=== PATIENT | male | born 1935 | race Caucasian/White ===

== ENCOUNTER 2017-01-14 08:04 | Emergency (ER) | payer OTHER ==
[~2017-01-14] VITALS: Ht 170.2 cm; Wt 83.0 kg
[2017-01-14 08:14] VITALS: TEMP 36.2; O2SAT 95; Ht 170.2 cm; Wt 83.0 kg
[2017-01-14] MEDS ORDERED: METOPROLOL TARTRATE 1 MG/ML VIAL IV STA (08:28)
--- NOTE | 2017-01-14 08:40 | EMERGENCY ROOM VISIT NOTE ---
History Report prepared by Joseph: Marce Quick Under the Supervision of: Dr. Carlos Kwong M.D. First contact with patient: 08:21 Chief Complaint: CARDIAC ASSESSMENT Stated Complaint: IRREGULAR AND FAST HEART RATE Nursing Triage Summary: patient states "my heart started beating irregular about 30 mins ago." patient denies any chest pain or shortness of breath History of Present Illness The patient is a 81 year old male who presents to the Emergency Room for a cardiac assessment. He started feeling his heart beat irregularly about 30 minutes [employer]. He has experienced this feeling in the past and states that it typically lasts for 3-5 minutes and resolves on its own. Today his symptoms have been worse and are lasting longer. Son is a physician and states that the patient has never been formally diagnosed with atrial fibrillation. The patient is feeling lightheaded. The patient denies chest pain, shortness of breath, abdominal pain, leg swelling, and dizziness. He does not currently take any blood thinners. He drinks alcohol occasionally but denies drinking more alcohol than usual last night. Source of History: patient, family Onset: 30 minutes [employer]DBO[employer]TER Position: chest Quality: other (irregular) Timing: constant Associated Symptoms: No chest pain, No SOB, No abdominal pain Review of Systems All systems have been listed, reviewed, and are negative other than those previously mentioned. Please see Additional Medical History Sheet. Past Medical & Surgical Medical Problems: (1) Hypertension (2) TIA (transient ischemic attack) Family History Non-pertinent due to advanced age. Social History Alcohol Use: occasionally Occupation Status: retired Current/Historical Medications Scheduled Amlodipine (Norvasc), 5 MG PO DAILY Clopidogrel (Plavix), 75 MG PO DAILY Folic Acid (Folvite), 1 MG PO DAILY Hctz/Losartan (Hyzaar 25MG/100MG), 1 TAB PO DAILY Metoprolol Tartrate (Lopressor) (Lopressor), 25 MG PO BID Rivaroxaban (Xarelto), 1 TAB PO HS Simvastatin (Zocor), 40 MG PO QAM Allergies Coded Allergies: Penicillins (Unverified Allergy, Intermediate, , 01/14/17) Physical Exam Vital Signs Date Time Temp Pulse Resp B/P (MAP) Pulse Ox O2 Delivery O2 Flow Rate FiO2 01/14/17 10:35 77 18 132/86 96 01/14/17 10:11 113 129/74 01/14/17 09:42 74 16 127/96 96 Room Air 01/14/17 09:20 90 18 130/84 96 Room Air 01/14/17 09:11 74 18 131/90 95 Room Air 01/14/17 08:55 103 18 139/85 97 Room Air 01/14/17 08:51 125/84 01/14/17 08:49 91 14 01/14/17 08:46 123/87 01/14/17 08:44 113 22 01/14/17 08:39 96 18 01/14/17 08:34 97 18 01/14/17 08:29 106 20 01/14/17 08:24 104 21 01/14/17 08:19 108 22 01/14/17 08:16 108 01/14/17 08:14 95 Room Air 01/14/17 08:14 36.2 124 16 150/100 95 Room Air 01/14/17 08:14 95 Room Air Physical Exam GENERAL: Patient awake, alert, oriented x 3. Patient follows commands. Patient does not appear toxic. Patient is adequately hydrated and well- nourished. SKIN: No erythema, pallor, cyanosis or rash HEENT: Normal head, pupils equal, reactive to light and accommodation. Oral cavity and posterior pharynx appear normal. Neck: Without adenopathy, no neck vein distention. LUNGS: Clear to auscultation. No wheezes, no rales, no rhonchi. HEART: No murmurs. No gallops. No rubs Irregular rapid without murmur. ABDOMEN: No masses, no rebound, no hepatomegaly or splenomegaly. EXTREMITIES: No signs of trauma. No pedal or pretibial edema. No calf or thigh tenderness. NEUROLOGIC: Cranial nerves II-XII within normal limits. No gross motor sensory function deficits. Medical Decision & Procedures ER Provider Diagnostic Interpretation: Radiology results as stated below per my review and radiologist interpretation: SINGLE VIEW CHEST CLINICAL HISTORY: Atrial fibrillation. FINDINGS: An AP, portable, upright chest radiograph is obtained. No prior studies are available for comparison at the time of dictation. The examination is degraded by portable technique, apical lordotic positioning, and patient rotation. The heart is enlarged and there is atherosclerotic calcification of the thoracic aorta. The pulmonary vasculature is noncongested. There is mild elevation of the right hemidiaphragm with bibasilar atelectasis. No airspace consolidation is seen typical for pneumonia and there is no large pleural effusion. A large calcified granuloma projects over the right lung base. No pneumothorax is seen. The skeletal structures are osteopenic. The bony thorax is grossly intact. IMPRESSION: Cardiomegaly with no acute cardiopulmonary abnormality. Electronically signed by: Ravinder Chapman M.D. 01/14/2017 8:57 AM Dictated Date/Time: 01/14/2017 8:55 AM Laboratory Results 01/14/17 08:34 01/14/17 08:34 Test 01/14/17 08:34 Red Blood Count 4.91 M/uL (4.7-6.1) Mean Corpuscular Volume 89.6 fL (80-100) Mean Corpuscular Hemoglobin 31.4 pg (25-34) Mean Corpuscular Hemoglobin Concent 35.0 g/dl (32-36) RDW Standard Deviation 43.0 fL (36.4-46.3) RDW Coefficient of Variation 13.1 % (11.5-14.5) Mean Platelet Volume 9.8 fL (7.4-10.4) Prothrombin Time 10.6 SECONDS (9.0-12.0) Prothromb Time International Ratio 1.0 (0.9-1.1) Activated Partial Thromboplast Time 30.1 SECONDS (21.0-31.0) Partial Thromboplastin Ratio 1.2 Anion Gap 9.0 mmol/L (3-11) Est Creatinine Clear Calc Drug Dose 53.9 ml/min Estimated GFR () 74.0 Estimated GFR (Non- 63.9 BUN/Creatinine Ratio 20.3 (10-20) Calcium Level 9.3 mg/dl (8.5-10.1) Total Bilirubin 0.5 mg/dl (0.2-1) Aspartate Amino Transf (AST/SGOT) 25 U/L (15-37) Alanine Aminotransferase (ALT/SGPT) 25 U/L (12-78) Alkaline Phosphatase 75 U/L (45-117) Troponin I < 0.015 ng/ml (0-0.045) Total Protein 7.8 gm/dl (6.4-8.2) Albumin 4.0 gm/dl (3.4-5.0) Globulin 3.8 gm/dl (2.5-4.0) Albumin/Globulin Ratio 1.0 (0.9-2) Laboratory results as stated above per my review. Medications Administered Medications (Trade) Dose Ordered Sig/Kurt Route Start Time Stop Time Status Last Admin Dose Admin Metoprolol Tartrate (Lopressor Iv) 15 mg NOW STAT IV 01/14/17 08:28 01/14/17 08:32 DC 01/14/17 10:11 10 MG Metoprolol Tartrate (Lopressor Tab) 25 mg NOW STAT PO 01/14/17 10:00 01/14/17 10:02 DC 01/14/17 10:22 25 MG ECG Indication: palpitations Rate (beats per minute): 104 Rhythm: atrial fibrillation (RVR) Findings: no acute ischemic change, other (normal axis) ED Course 08: Past medical records reviewed. The patient was evaluated in room A2. A complete history and physical examination was performed. 0828: Lopressor 5 mg IV x 3 0949: I reassessed the patient at this time. He is feeling better and resting comfortably. I discussed the results and treatment plan with the patient. I answered all pertaining questions that he had. He expressed understanding and verbalized agreement. The patient will be discharged home. 1000: Lopressor 25 mg PO Medical Decision Nurses notes reviewed. Medical history sheet reviewed. Differential diagnosis includes but is not limited to: Atrial fibrillation, ischemic heart disease, metabolic disorder, acute corocnary syndrome, [place]. Multiple labs, EKG and imaging were obtained. Please see above. The patient was given IV metoprolol which slowed his rate. The patient remained in atrial fibrillation but his rate was in the 70s. The patient has no chest pain. I am concerned that he has a greater risk for stroke and therefore he was placed on Xarelto. We did discuss different options. The patient will need to follow-up with his family physician or atm mechanic this week. The patient will continue taking metoprolol in addition to Xarelto at home. The patient was encouraged to stop taking Plavix while on Xarelto. Medication Reconcilliation Current Medication List: was personally reviewed by me Blood Pressure Screening Patient's blood pressure: Normal blood pressure Impression Primary Impression: Atrial fibrillation with rapid ventricular response Scribe Attestation The scribe's documentation has been prepared under my direction and personally reviewed by me in its entirety. I confirm that the note above accurately reflects all work, treatment, procedures, and medical decision making performed by me. Departure Information Dispostion Home / Self-Care Prescriptions Metoprolol Tartrate (Lopressor) (Lopressor) 25 Mg Tab 25 MG PO BID, #60 TAB Prov: Carlos Kwong M.D. 01/14/17 Rivaroxaban (XARELTO) 20 Mg Tab 1 TAB PO HS for 30 Days, #30 TAB 5 Refills Prov: Carlos Kwong M.D. 01/14/17 Referrals No Doctor, Assigned (PCP) Patient Instructions [facility], My [facility] Additional Instructions 20 mg of Xarelto one every night before bed. 25 mg of metoprolol twice a day. Stop Plavix. Continue all of your other current medications as prescribed. Follow-up with your family physician or atm mechanic within the next 3 days.
[2017-01-14 08:56] LABS: MEAN CELL VOLUME 89.6 fL (80-100); MEAN CORPUSCULAR HEMOGLOBIN 31.4 pg (25-34); MEAN PLATELET VOLUME 9.8 fL (7.4-10.4); PLATELET COUNT 184 K/uL (130-400); RED BLOOD COUNT 4.91 M/uL (4.7-6.1); WHITE BLOOD COUNT 5.68 K/uL (4.8-10.8)
--- NOTE | 2017-01-14 08:59 | DIAGNOSTIC IMAGING REPORT ---
SINGLE VIEW CHEST CLINICAL HISTORY: Atrial fibrillation. FINDINGS: An AP, portable, upright chest radiograph is obtained. No prior studies are available for comparison at the time of dictation. The examination is degraded by portable technique, apical lordotic positioning, and patient rotation. The heart is enlarged and there is atherosclerotic calcification of the thoracic aorta. The pulmonary vasculature is noncongested. There is mild elevation of the right hemidiaphragm with bibasilar atelectasis. No airspace consolidation is seen typical for pneumonia and there is no large pleural effusion. A large calcified granuloma projects over the right lung base. No pneumothorax is seen. The skeletal structures are osteopenic. The bony thorax is grossly intact. IMPRESSION: Cardiomegaly with no acute cardiopulmonary abnormality. Electronically signed by: Ravinder Chapman M.D. 01/14/2017 8:57 AM Dictated Date/Time: 01/14/2017 8:55 AM
[2017-01-14 09:05] LABS: PARTIAL THROMBOPLASTIN RATIO 1.2; PROTHROMBIN TIME (PATIENT) 10.6 SECONDS (9.0-12.0)
[2017-01-14 09:17] LABS: ALT/SGPT 25 U/L (12-78); BLOOD UREA NITROGEN 22 mg/dl (7-18); BUN/CREATININE RATIO 20.3 (10-20); CALCIUM 9.3 mg/dl (8.5-10.1); CARBON DIOXIDE 22 mmol/L (21-32); CHLORIDE 110 mmol/L (98-107); CREATININE 1.07 mg/dl (0.60-1.40); GLUCOSE 86 mg/dl (70-99); POTASSIUM 3.9 mmol/L (3.5-5.1); SODIUM 141 mmol/L (136-145)
[2017-01-14] MEDS ORDERED: HYZ/10015 PO (09:19)
[2017-01-14] MEDS ORDERED: SIMV40TA2 PO (09:19)
[2017-01-14] MEDS ORDERED: AMLO-110 PO (09:19)
[2017-01-14] MEDS ORDERED: CLOP1TAB15 PO (09:19)
[2017-01-14] MEDS ORDERED: FOLI1TAB7 PO (09:19)
[2017-01-14 09:22] LABS: ALKALINE PHOSPHATASE 75 U/L (45-117); AST/SGOT 25 U/L (15-37)
[2017-01-14] MEDS ORDERED: METOPROLOL TARTRATE 50 MG TAB PO STA (10:00)
[2017-01-14] MEDS ORDERED: METO25TA56 PO (10:12)
[2017-01-14] MEDS ORDERED: RIVA1TAB4 PO (10:12)
[2017-01-14 10:35] VITALS: BP 132/86; PULSE 77; O2SAT 96
== END 2017-01-14 10:37 | disposition home or self-care (01) ==
LOC: C.EDB 08:05 → C.EDA 10:37
DX: I48.91 Unspecified atrial fibrillation (principal); I10 Essential (primary) hypertension; G45.9 Transient cerebral ischemic attack, unspecified